=== PATIENT | male | born 1990 | race Caucasian/White ===

== ENCOUNTER 2020-06-21 22:36 | Emergency (ER) | payer SELFPAY ==
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
== END 2020-06-22 00:05 | disposition home or self-care (01) ==
LOC: LB.ED 22:36
DX: S40.011A Contusion of right shoulder, initial encounter (principal); E66.01 Morbid (severe) obesity due to excess calories; V86.99XA Unspecified occupant of other special all-terrain or other off-road motor vehicle injured in nontraffic accident, initial encounter
CPT/HCPCS: 36415; 70450; 71046; 72125; 73030-RT; 80053; 80307; 85025; 99282; 99284-25